=== PATIENT | male | born 1965 | race Caucasian/White ===

== ENCOUNTER 2019-10-06 20:59 | Emergency (ER) | payer MEDICAID ==
[~2019-10-06] VITALS: Ht 170.2 cm; Wt 74.8 kg
[2019-10-06 21:05] VITALS: BP_SYST 141
--- NOTE | 2019-10-06 21:05 | NUR ---
Patient triaged and placed in waiting room. VSS and patient appears in no acute distress at this time. Accompanied by FAM MEMBER, awaiting available bed, and MD notified of need for MSE.
--- NOTE | 2019-10-06 22:37 | NUR ---
Patient to ER bed 5 to gown for evaluation. Side rails up. Report given to ANNA BALBUENA.
--- NOTE | 2019-10-06 22:48 | NUR ---
Stateless-speaking patient AAO x 4 ambulates to ER bed 05 accompanied by with complaints of dizziness since last Wednesday and current 06/08 headache. Saw PCP last week and specialist x 1 day ago. Was given Rx of Zofran last week and Augmentin and Prednisone yesterday. Patient also reports nausea with no vomiting. Denies diarrhea, constipation, and urinary problems. Even chest rise and fall with respirations. Will continue to monitor.
[2019-10-06] MEDS ORDERED: MECLIZINE HCL 25 MG TABLET (ANITVERT) PO ONE (23:15)
--- NOTE | 2019-10-06 23:35 | NUR ---
ER-MD CAME BY BEDSIDE TO EVALUATE PT.
--- NOTE | 2019-10-06 23:54 | NUR ---
WENT FOR CT SCAN OF HEAD VIA [facility].
[2019-10-07] MEDS ORDERED: KETOROLAC TROMETHAMINE 60 MG/2 ML VIAL IM ONE
[2019-10-07] MEDS ORDERED: DIAZEPAM 5 MG TABLET (VALIUM) PO ONE
--- NOTE | 2019-10-07 00:03 | NUR ---
BACK FROM CT SCAN.
--- NOTE | 2019-10-07 00:11 | NUR ---
VALIUM 5 MG PO AND TORADOL 60 MG IM GIVEN ORDERED.
[2019-10-07 01:30] VITALS: BP_SYST 140
--- NOTE | 2019-10-07 01:30 | NUR ---
Patient given written and verbal discharge instructions and verbalizes understanding. ER MD discussed with patient the results and treatment provided. Patient in stable condition. ID arm band removed. No IV catheter Rx of Motrin 800mg, Zofran 8mg, valium 5mg given. Patient educated on pain management and to follow up with PMD. Pain Scale 0/10. Opportunity for questions provided and answered. Medication side effect fact sheet provided.
== END 2019-10-07 01:30 | disposition home or self-care (01) ==
LOC: SED 20:59
DX: R42 Dizziness and giddiness (principal); H93.13 Tinnitus, bilateral; R51 Headache
CPT/HCPCS: 70450; 96372; 99284; J1885; J8597